=== PATIENT | male | born 1980 ===

== ENCOUNTER 2024-02-12 09:22 | Outpatient (AMB) | payer OTHER, SELFPAY ==
--- NOTE | 2024-02-12 09:32 | HO.SPINEOV ---
Vital Signs 02/12/24 09:53 Height 6 ft Weight 233 lb BMI 31.6 Intake Visit Reasons: LBP Intake Note: Mr. Tan is here today c/o low back pain. 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 He is in very nice 43-year-old gentleman who works at a [employer], who has had a previous L4-5 diskectomy left-sided done by Dr. Kent a number of years ago with excellent success. He tells me that sometime in November he was leaning back in a chair at 1 of his children soccer games and almost fell over and while he was trying to lean forward so we did not fall he felt intense pain in his back. Since that time he has had centralized low back pain which does radiate around into his groin toward his testicles. He has a hard time transitioning from sitting to standing but prefers a standing position. He has a lot of difficulty sleeping. Thankfully he has no pain going down his legs at this point. He has been taking alleve. He has been avoiding strenuous activities. But the pain does not seem to be improving. He saw who told him to go to the pain management Center. He was referred to [facility], but his appointment is not some time until March. He is frustrated because he is continuing to work, but he is in daily back pain and discomfort. He had an MRI done at [facility] showing a herniated disc at L4-5. PMH: Otherwise healthy, denies any major medical problems, he did have a vasectomy, previous back surgery, 2 skin lesions removed from his face in his foot. Social hx: He smokes a quarter pack a day, occasional alcohol, occasional marijuana Medications: Just alleve at this point Allergies: None Physical exam: Strength and reflexes as well as gait are normal Imaging review: Lumbar MRI done at [facility] shows a recurrent, centralized herniated disc at L4-5 which does cause some narrowing of the lateral recess bilaterally. Impression: 43-year-old male with previous history of L4-5 left-sided diskectomy done by a number of years ago, presents for 2nd opinion on his back. He has had persistent back pain for the last 2 months primarily centralized but will radiate toward his groin. He had imaging done at [facility] showing a centralized herniated disc with what appears to be tension on the posterior longitudinal ligament. I reviewed his imaging with him, we discussed the natural history of disc herniations. I told him that the odds are in his favor that this may go away with time and he could avoid surgery, but there is no way to predict how long it would take. Given his insurance [facility] [place] will require extensive conservative management before any consideration of surgery, I told him we could get him into physical therapy and gave him a referral. I also will refer him to who will likely be able to expedite an appointment more quickly than the [facility] pain management group who was giving the patient an appointment sometime in March. I think an L4-5 epidural would be a reasonable thing to try. He has had injections done in the past and they would give him some temporary relief. If he tries these things and he is not improved, I think Dr. Lovelace would offer him a microdiskectomy. I will review the imaging with Dr. Lovelace, just to finalize a surgical plan if it comes to that point. Otherwise, I told the patient to call me once he is done with the injections in the PT and we can reassess. Thank you for allowing us to care for your patient. The total time spent with this visit with this patient was 45 minutes reviewing history, physical exam, lumbar imaging review, and implementation of treatment plan or further diagnostic testing Christiano oLvelace MD,PhD [facility] Orders: Orders PT Evaluation and Treatment Today M51.26 - Other intervertebral disc displacement, lumbar region Referrals Physiatry Referral M51.26 - Other intervertebral disc displacement, lumbar region Coding Level of Care Code New Pt Level 4 (73597) Diagnoses Lumbar disc herniation M51.26
[2024-02-12 09:53] VITALS: BMI 31.6
== END 2024-02-12 11:04 | disposition home or self-care (01) ==
PROVIDERS: PCP Internal Medicine; Referring Provider Internal Medicine; Visit Provider Physician Assistant
DX: M51.26 Other intervertebral disc displacement, lumbar region (principal)
CPT/HCPCS: 99204

== ENCOUNTER 2025-01-17 10:45 | Outpatient (REF) | payer MEDICAID, SELFPAY | END 2025-01-17 10:46 | disposition home or self-care (01) | LOC: HO.HPHYSR 10:45 | PROVIDERS: PCP Internal Medicine; Visit Provider Physical Medicine & Rehabilitation | DX: M54.16 Radiculopathy, lumbar region (principal) | CPT/HCPCS: 64483; J2003; J3301; Q9967 ==

== ENCOUNTER 2025-01-17 10:45 | Outpatient (AMB) | payer MEDICAID, SELFPAY ==
--- NOTE | 2025-01-17 10:44 | A.PHYSOV_ITS ---
Vital Signs 01/17/25 10:46 Height 6 ft Weight 240 lb BMI 32.5 Pulse 86 Temp 98.1 F Intake Visit Reasons: Bilateral Lumbar Transforaminal Epidural L4 Intake Note: Patient is a 68 year old female in office today for a Bilateral Shoulder Injection. Allergies No Known Allergies Allergy (Verified 01/17/25 10:45) [facility] Medical History (Updated 01/17/25 @ 11:01 by Prateek Perez DO) Lumbar radiculitis Surgical History History of back surgery (Unknown) Social History Household Members: Spouse Alcohol intake: current Alcohol intake frequency: holidays/special occasions only Patient Tobacco Use Status: Current everyday Tobacco user Substance Use Type: Marijuana Current occupational status: employed Physical Exam Vital Signs: Last Vital Signs Temp 98.1 F 01/17/25 10:46 Pulse 86 01/17/25 10:46 BMI result Body Mass Index 32.5 Office Procedures Procedure Details: Procedure performed: Bilateral L4 transforaminal epidural steroid injection Preop diagnosis: Lumbar radiculitis Postop diagnosis: The same Anesthesia: Local After informed consent was obtained, patient was placed on the procedure table in a prone position. Skin over lumbosacral area was prepped and draped in usual sterile manner. Right L4 pedicle was visualized utilizing fluoroscopy. 5 inch 22 gauge spinal needle was introduced percutaneously and advanced towards the pedicle at about 6 o'clock position. Once level of neural foramina was reached, needle placement was verified utilizing 3 cc of Omnipaque contrast solution. Excellent flow through the neural foramina and epidural spread was identified without evidence of vascular uptake. Total volume of 6 cc containing 2 cc of 1% lidocaine, 40 mg of triamcinolone and normal saline solution were injected after negative aspiration for blood and cerebrospinal fluid. Identical procedure was repeated on the opposite side. Radiation exposure was documented in the chart. Lumbar transforaminal Epidural Steroid Inj- use with FL Gd: 34697 - Single Additional procedure code (CPT) needed (Bilateral procedure was performed modifier 50) Office Meds Kenalog 40 mg/mL suspension for injection Performing Provider: Prateek Perez DO Performing Location: [facility] Administered by: Prateek Perez DO on 01/17/25 11:18 Dose Route Admin Location Dispensed Lot Number Expiration Date [facility] [employer] 80 mg epidural 2 mL [id number] [employer] Total Dispensed Waste 2 mL 0 % lidocaine (PF) 10 mg/mL (1 %) injection solution Performing Provider: Prateek Perez DO Performing Location: [facility] Administered by: Prateek Perez DO on 01/17/25 11:18 Dose Route Admin Location Dispensed Lot Number Expiration Date [facility] [employer] 50 mg epidural 5 mL [id number] [employer] Total Dispensed Waste 5 mL 0 % Omnipaque 300 300 mg iodine/mL intravenous solution Performing Provider: Prateek Perez DO Performing Location: [facility] Administered by: Prateek Perez DO on 01/17/25 11:18 Dose Route Admin Location Dispensed Lot Number Expiration Date [facility] [employer] 3 mL epidural 10 mL [id number] [employer] [facility] Total Dispensed Waste 10 mL 70 % Assessment & Plan Assessment & Plan (1) Lumbar radiculitis: Code(s): M54.16 - Radiculopathy, lumbar region Category: Medical Plan: Bilateral L4 TFESI Plan Bilateral L4 TFESI Orders: Orders FL Gd Lumbar Transforaminal In Today M54.16 - Radiculopathy, lumbar region AMB Lumbar transforaminal Epidural Steroid Injection Today M54.16 - Radiculopathy, lumbar region Coding Level of Care Code Procedure Only Diagnoses Lumbar radiculitis M54.16 CPT Codes Lumbar transforaminal Epidural Steroid I - CPT TRANSFORM: 14687 - Single ([id number]) Lumbar transforaminal Epidural Steroid I - All charges added?: Additional procedure code (CPT) needed ([id number])
[2025-01-17 10:46] VITALS: PULSE 86; TEMP 36.7; BMI 32.5
--- OUTSIDE RECORDS SUMMARY | 2025-01-17 11:29 | XMS_ITS | Clinical Summary ---
Author Organization 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
== END 2025-01-17 11:22 | disposition home or self-care (01) ==
LOC: HO.HPHYS 10:45
PROVIDERS: PCP Internal Medicine; Visit Provider Physical Medicine & Rehabilitation
DX: M54.16 Radiculopathy, lumbar region (principal)
CPT/HCPCS: 64483

== ENCOUNTER 2025-02-13 13:38 | Outpatient (AMB) | payer MEDICAID, SELFPAY ==
[2025-02-13 13:57] VITALS: BMI 32.5
--- NOTE | 2025-02-13 13:57 | A.PHYSOV ---
Vital Signs 02/13/25 13:57 Height 6 ft Weight 240 lb BMI 32.5 Intake Visit Reasons: F/U after lnubcyakp23/21/2025 Intake Note: Patient is a 44 year old male here for follow up after bilateral L4 TFE on 01/17/25. 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 He previously received a central injection for his pain, which initially worked but eventually became less effective. Consequently, he underwent a different procedure involving an injection at the nerve roots, which has provided significant pain relief. Patient has subsequently underwent bilateral L4 TFESI on 01/17/2025 with 100% reduction of his pain. He is able to stand for longer periods of time and ambulate longer distances. Overall he is very happy with his results. Pain Description - The patient reports that the specific back pain for which he was treated is now gone. - He currently only experiences normal body aches. - A previous central injection worked initially but then stopped being as effective. - The most recent procedure was a nerve root injection which, although more painful during administration, has resulted in excellent pain relief. Procedure: L5-S1 KELY 03/08/2024 90% reduction of his pain L5-S1 KELY 10/04/2024 50% reduction of his pain Bilateral L4 TFESI 01/17/2025 100% reduction of his pain [facility] Medical History (Updated 01/17/25 @ 11:01 by Prateek Perez DO) Lumbar radiculitis Surgical History History of back surgery (Unknown) Social History Household Members: Spouse Alcohol intake: current Alcohol intake frequency: holidays/special occasions only Patient Tobacco Use Status: Current everyday Tobacco user Substance Use Type: Marijuana Current occupational status: employed Review of Systems Narrative Review of Systems - Musculoskeletal: Denies the specific back pain for which he was treated. Reports normal body aches. Physical Exam Exam Exam: Physical Exam Lumbar Spine: Examination of his lumbar spine, there is no visible swelling or deformity. He is less tender to lower lumbar facets. Full range of motion. Special Tests: Lhermittes sign was negative Heel Toe walk is normal Left straight leg raise: Negative Right straight leg raise: Negative Special tests Ebony test is negative Ganslen's test is negative SI Joint compression test negative Krzysztof test negative Piriformis stretch is negative Lower Extremities: Full range of motion bilateral lower extremities. No calf pain or edema. Neuro: Sensation: Intact to lower extremities bilaterally Strength L2 (Psoas): 5/5 on the left and 5/5 on the right. L3 (Quads): 5/5 on the left and 5/5 on the right. L4 (Ant tibialis): 5/5 on the left and 5/5 on the right. L5 (EHL) 5/5 on the left and 5/5 on the right. S1 (Gastroc): 5/5 on the left and 5/5 on the right. DTR L4: (Patellar) Left 2 Right 2 S1: (Achilles) Left 2 Right 2 Babinski Downgoing No pathologic clonus. No involuntary movement. Vital Signs: BMI result Body Mass Index 32.5 Assessment & Plan Assessment & Plan (1) Lumbar disc herniation: Code(s): M51.26 - Other intervertebral disc displacement, lumbar region Category: Medical (2) Lumbar radiculitis: Code(s): M54.16 - Radiculopathy, lumbar region Category: Medical Plan Pain Management - Affect: The patient reports feeling a lot better following his recent procedure. - Analgesia: He currently has no pain from his primary complaint and only reports normal body aches. - Adverse Effects: The recent injection procedure was noted to be more painful than his previous one. - Activities of Daily Living: The patient was advised to engage in low-impact activities such as walking, swimming, and yoga, and to use good posture and lifting techniques. - Aberrant Drug-Related Behaviors: No aberrant behaviors were noted or discussed. Plan Patient was informed and verbally consented to the use of an ambient scribe for clinic note documentation during this visit. 1. Back Pain The patient has experienced significant improvement in his back pain following a recent nerve root injection, which was performed after a prior central injection became less effective. The duration of pain relief from this injection is uncertain, but an ideal outcome would be four to six months. If the pain returns, the plan is to repeat the same injection as needed, bilateral L4 TFESI. 2. Health Maintenance The patient was counseled on lifestyle modifications to support his back health. Recommendations include eating a healthy diet, engaging in low-impact activities like walking, swimming, and yoga, maintaining good posture, and using proper lifting techniques. Discussion Notes I reviewed the patient's excellent response to his recent lateral nerve root injection, noting it was a different approach from the previous, less effective central injection. When asked about the longevity of the relief, I explained that it is unpredictable but that an ideal duration would be at least four to six months. I advised him to contact the office if his pain returns, at which point I would order a repeat of the same successful injection. We also discussed general wellness, and I encouraged him to maintain a healthy diet, engage in low-impact exercises like walking and swimming, practice yoga, and be mindful of posture and lifting techniques. Patient Instructions - Your recent pain injection has worked very well, and we are pleased with your improvement. - It is not possible to know exactly how long the pain relief will last, but we hope it will be for at least 4 to 6 months. - If you feel your pain starting to return, please call our office. We can then order the same injection for you again. - To help your back, continue to eat a healthy diet, do low-impact exercises like walking and swimming, maintain good posture, and use safe techniques when lifting heavy objects. Coding Level of Care Code Est Pt Level 3 (84249) Diagnoses Lumbar disc herniation M51.26 Lumbar radiculitis M54.16
--- OUTSIDE RECORDS SUMMARY | 2025-02-13 17:52 | XMS_ITS | Patient Health Record ---
Author Organization [facility] Address [address] [place] [address] Care Team Providers Care Slip Caster Name Role Phone MarniChristiano martin Primary Care Provider Christiano Slaughter Unavailable Unavailable Reason For Referral No Information Medications Medication SIG (Take, Route, Frequency, Duration) Notes Start Date End Date Status Cortisporin-TC 3.3-3-10-0.5 MG/ML Suspension 5 drops into affected ear Otic Three times a day; Duration: 10 days 02/13/2025 Active Medrol (Arun) 4 MG Tablet As directed o n package Orally Daily; Duration: 6 days 02/13/2025 Active Amoxicillin-Pot Clavulanate 875-125 MG Tablet 1 tablet Orally every 12 hrs; Duration: 10 days 02/13/2025 Active Social History Tobacco Use: Social History Observation Description Date Details (start date - stop date) Current Smoker NA - NA Social History Drugs/Alcohol: Social Info Question Answer Notes Drugs Have you used drugs other than those for medical reasons in the past 12 months? No Drug/Alcohol: Social Info Question Answer Notes AUDIT-C (Standard) Did you have a drink containing alcohol in the past year? Yes How often did you have a drink containing alcohol in the past year? Monthly or less (1 point) How many drinks did you have on a typical day when you were drinking in the past year? 1 or 2 drinks (0 point) How often did you have six or more drinks on one occasion in the past year? Never (0 point) Points 1 Interpretation Negative Tobacco Use: Social Info Question Answer Notes Tobacco Control (Standard) Tobacco use: Current smoker How often do you smoke cigarettes? Every day How many cigarettes a day do you smoke? 6-10 Problems Problem Type SNOMED Code ICD Code Onset Dates Problem Status W/U Status Risk Notes Problem Tobacco user ([id number]) Nicotine dependence, cigarettes, uncomplicated (F17.210) Active confirmed Vital Signs Height 92 in 02/13/2025 Weight 237.4 lbs 02/13/2025 BMI 19.72 kg/m2 02/13/2025 Encounters Encounter Location Date Provider Diagnosis [facility] [address] [place] [address] 02/13/2025 Christiano [facility] Acute left otitis me pierre H66.92 ; Acute diffuse otitis externa of left ear H60.312 ; Laboratory tests ordered as part of a complete physical exam (CPE) Z00.00 and Nicotine dependence, cigarettes, uncomplicated F17.210 Assessments Encounter Date Diagnosis (ICD Code) Assessment Notes Treatment Notes Treatment Clinical Notes Section Notes 02/13/2025 Acute diffuse otitis externa of left ear (ICD-10 - H60.312) 02/13/2025 Acute left otitis media (ICD-10 - H66.92) 02/13/2025 Laboratory tests ordered as part of a complete physical exam (CPE) (ICD-10 - Z00.00) 02/13/2025 Nicotine dependence, cigarettes, uncomplicated (ICD-10 - F17.210) 02/13/2025 Other This chart has been transcribed by a computerized dictation system. There are likely to be multiple biometric fingerprinting technician inaccuracies despite chart review. Plan Of Treatment Pending Test Test Name Order Date Urinalysis, Complete-[id number] 02/13/2025 Vitamin D, 47-Gfmbjmq-[id number] 02/13/2025 LP+Non-HDL Cholesterol-[id number] 02/13/2025 TSH+Free [id number] 02/13/2025 Comp. Metabolic Panel [phone] CBC with Diff, Platelet, [id number] 01/27 Next Appt Details Provider Name:Christiano Paredesjolanta martin, 03/07/2025 03:15:00 PM, [address] [place] [address], [phone], Insurance Providers Payer Name Payer Address Payer Phone Subscriber Number Group Number Insured Name Patient Relationship to Insured Coverage Start Date Coverage End Date [employer] [address] [place] [phone] [id number] Prateek Tan Self - patient is the insured Medical (General) History Surgical History Surgery Date(Month/Year) L4 L5 discectomy Nasal polypectomy Vasectomy
== END 2025-02-13 14:20 | disposition home or self-care (01) ==
PROVIDERS: PCP Internal Medicine; Visit Provider Physician Assistant
DX: M51.26 Other intervertebral disc displacement, lumbar region (principal); M54.16 Radiculopathy, lumbar region
CPT/HCPCS: 99213

== ENCOUNTER → 2025-02-13 13:38 | Outpatient (BNVA) | payer MEDICAID, SELFPAY | PROVIDERS: PCP Internal Medicine; Visit Provider Physician Assistant | DX: M51.16 Intervertebral disc disorders with radiculopathy, lumbar region (principal) | CPT/HCPCS: 99212 ==